=== PATIENT | male | born 1950 | race Two or more races ===

== ENCOUNTER → 2018-02-14 | Outpatient (CLI) | payer MEDICARE, OTHER ==
--- NOTE | 2018-02-16 09:38 | PE ---
EXAMINATION TYPE: PET CT fusion skull to thigh DATE OF EXAM: 02/14/2018 COMPARISON: NONE HISTORY: Newly diagnosed lung cancer. Initial staging. TECHNIQUE: Following the intravenous administration of 11.6 mCi of F-18 FDG, whole body images are p erformed from the skull base to the midthigh. Images are reviewed on the computer in the coronal, ax ial, and sagittal planes. Reconstructed rotating images are created on independent workstation and r eviewed on the computer. A localization and attenuation correction CT is performed in conjunction w ith the PET scan. SCAN: Initial FINDINGS: Background thoracic uptake: 1.43 Background hepatic uptake: 2.91 SKULL BASE AND NECK: No suspicious hypermetabolic uptake. CHEST, MEDIASTINUM, AND HILAR REGION: Within the left upper lobe posteriorly there is a peripherally spiculated hypermetabolic mass measuring 4.0 x 4.7 cm on series 3 image 85. This has a maximum SUV of 14.3. There is background moderate centrilobular emphysematous change. There is a left perihilar 8 mm short axis lymph node with a maximum SUV of 2.27 on the right there is a 7 mm short axis lymph node on series 3 image 106 with a maximum SUV of 2.13, above mediastinal daniela kground. ABDOMEN AND PELVIS: No suspicious hypermetabolic activity. OSSEOUS STRUCTURES: No suspicious hypermetabolic uptake. OTHER CT: There is a medial course of the left internal carotid artery placing mass effect upon the p osterior pharyngeal wall at the level of the vallecula on the left. The paranasal sinuses demonstrate scant right maxillary mucosal thickening. The thyroid gland is homogeneous. Mild calcific atheromatous changes are seen of the thoracic aorta. There is minimal retroareolar symm etric gynecomastia seen. The unenhanced liver, spleen, adrenal glands, and gallbladder are unremarkab le morphology. No cholelithiasis. Within the left kidney there is a 1.8 cm cystic lesion. Otherwise t he kidneys are symmetric and unremarkable. Pancreas is unremarkable without ductal dilatation. Modera te calcific atheromatous changes are seen of the abdominal aorta and its branches. There is no dilate d large or small bowel. There is circumferential urinary bladder wall thickening, likely related to i ncomplete distention. Few scattered colonic diverticula are seen without pericolonic fat stranding. T here are no greater than 1 cm short axis lymph nodes seen within the abdomen or pelvis. There is a sc lerotic focus within the L3 vertebral body that is not hypermetabolic. Multilevel degenerative change s of the spine are noted. IMPRESSION: Primary left upper lobe hypermetabolic solitary pulmonary neoplasm is seen with ipsilater al and contralateral nonenlarged mediastinal adenopathy demonstrating hypermetabolic activity slightl y above mediastinal background suspicious for metastasis. Overall this with classify the left lung ca rcinoma as [id number]. Although the hilar lymph nodes demonstrate only mild hypermetabolic activity and therefore if confirmation is desired endobronchial biopsy could be considered. No supraclavicular drew nopathy.
== END | disposition home or self-care (01) ==
LOC: RADXRMAIN 09:03
PROVIDERS: ATTEND Internal Medicine Hematology & Oncology
DX: C34.12 Malignant neoplasm of upper lobe, left bronchus or lung (principal); R59.0 Localized enlarged lymph nodes
CPT/HCPCS: 78815; A9552

== ENCOUNTER → 2018-07-01 | Outpatient (CLI) | payer MEDICARE, OTHER ==
--- NOTE | 2018-07-01 15:05 | US ---
EXAMINATION TYPE: US venous doppler duplex LE BI DATE OF EXAM: 07/01/2018 2:29 PM COMPARISON: CLINICAL HISTORY: M79.662 Lower limb Pain M79.661 Pain. No redness or swelling. No hx of blood clots or on blood thinners. Bilateral calf pain. SIDE PERFORMED: Bilateral TECHNIQUE: The lower extremity deep venous system is examined utilizing real time linear array sonog joanna with graded compression, doppler sonography and color-flow sonography. VESSELS IMAGED: External Iliac Vein (EIV) Common Femoral Vein Deep Femoral Vein Greater Saphenous Vein * Femoral Vein Popliteal Vein Small Saphenous Vein * Proximal Calf Veins (* superficial vessels) Right Leg: Negative for DVT Left Leg: Negative for DVT IMPRESSION: 1. No diagnostic evidence of DVT as visualized.
== END | disposition home or self-care (01) ==
LOC: RADUSWWP 13:41
PROVIDERS: ATTEND Internal Medicine Hematology & Oncology
DX: M79.662 Pain in left lower leg (principal); M79.661 Pain in right lower leg
CPT/HCPCS: 93970